=== PATIENT | male | born 1965 | race Caucasian/White ===

== ENCOUNTER → 2016-04-27 | Day surgery (SDC) | payer BC ==
[~2016-04-27] VITALS: Ht 180.3 cm; Wt 79.0 kg
== END ==
LOC: GPOC 04-25 14:00 → GEND 07:13 → GPOC 14:00
PROC: 0DJD8ZZ Inspection of Lower Intestinal Tract, Via Natural or Artificial Opening Endoscopic (ICD-10-PCS; principal; 2016-04-27)
DX: R10.31 Right lower quadrant pain (principal); Z87.891 Personal history of nicotine dependence; Z88.3 Allergy status to other anti-infective agents; Z98.890 Other specified postprocedural states
CPT/HCPCS: J2001; J7030